=== PATIENT | female | born 1990 | race Caucasian/White ===

== ENCOUNTER 2017-02-07 12:49 | Emergency (ER) | payer OTHER ==
[~2017-02-07] VITALS: Ht 154.9 cm; Wt 45.4 kg
[2017-02-07] MEDS ORDERED: BUTA1CAP PO (13:03)
[2017-02-07] MEDS ORDERED: MELA2.5C2 PO (13:03)
[2017-02-07] MEDS ORDERED: NYQU1LIQ PO (13:03)
[2017-02-07] MEDS ORDERED: MAGN250T2 PO (13:03)
[2017-02-07] MEDS ORDERED: RIBO50CA PO (13:03)
[2017-02-07] MEDS ORDERED: NS 1,000 ML IV ONE (13:15)
[2017-02-07] MEDS ORDERED: METOCLOPRAMIDE INJ 10MG/2ML VIAL (J2765) IV ONE (13:15)
[2017-02-07] MEDS ORDERED: KETOROLAC 30 MG/ML VIAL (J1885) IV ONE (13:15)
[2017-02-07] MEDS ORDERED: ACETAMINOPHEN 325 MG TAB PO ONE (14:15)
[2017-02-07 15:03] VITALS: BP 100/61
== END 2017-02-07 15:47 | disposition home or self-care (01) ==
LOC: M ED 13:57
DX: G44.329 Chronic post-traumatic headache, not intractable (principal); Z88.1 Allergy status to other antibiotic agents; Z88.0 Allergy status to penicillin; Z79.899 Other long term (current) drug therapy
CPT/HCPCS: 96361; 96374; 96375; 99283; J1885; J2765

== ENCOUNTER → 2017-06-04 | Outpatient (REF) | payer OTHER ==
[~2017-06-04] MED LIST: BUTA1CAP PO; MAGN250T7 PO; MELA2.5C2 PO; NYQU1LIQ PO; RIBO50CA PO
== END ==
LOC: M LAB REF 19:26
PROVIDERS: ATTEND Physician Assistant
DX: N39.0 Urinary tract infection, site not specified (principal)

== ENCOUNTER → 2018-12-16 | Outpatient (REF) | payer BC, OTHER ==
[2018-12-16 21:47] LABS: APPEARANCE, URINE HAZY (CLEAR); BACTERIA, URINE AUTO 1+ (NEGATIVE); BILIRUBIN, URINE AUTO NEGATIVE (NEGATIVE); BLOOD, URINE BLOOD NEGATIVE (NEGATIVE); COLOR, URINE YELLOW (YELLOW); GLUCOSE, URINE (UA) AUTO NEGATIVE (NEGATIVE); KETONE, URINE AUTO NEGATIVE (NEGATIVE); LEUKOCYTE ESTERASE, URINE AUTO TRACE (NEGATIVE); MUCUS, URINE SMALL (NEGATIVE); NITRITE, URINE AUTO NEGATIVE (NEGATIVE); PROTEIN, URINE AUTO NEGATIVE (NEGATIVE); RBC, URINE AUTO 1 /HPF (0-3); SQUAMOUS EPITHELIAL CELL UR AU 9 /HPF (0-6); WBC, URINE AUTO 4 /HPF (0-3)
== END ==
LOC: M LAB REF 12:02
PROVIDERS: ATTEND Physician Assistant Medical
DX: N39.0 Urinary tract infection, site not specified (principal)

== ENCOUNTER 2018-12-20 16:03 | Emergency (ER) | payer OTHER, BC ==
[2018-12-20] MEDS ORDERED: ACETAMINOPHEN TAB 650MG DOSE (2X325MG) PO ONE (16:30)
[2018-12-20] MEDS ORDERED: ADACEL/BOOSTRIX VACCINE (DIPHTH/PERTUSS/ACELL/TETANUS)0.5ML SYR (90715) IM ONE (16:30)
[2018-12-20 18:03] VITALS: BP 111/69
== END 2018-12-20 18:20 | disposition home or self-care (01) ==
LOC: EDBD 16:03 → M ED 16:03
DX: S01.01XA Laceration without foreign body of scalp, initial encounter (principal); W19.XXXA Unspecified fall, initial encounter; Y92.89 Other specified places as the place of occurrence of the external cause

== ENCOUNTER → 2019-01-14 | Outpatient (REF) | payer BC ==
[2019-01-18 14:37] LABS: HPV HYBRID CAPTURE II Negative (Negative)
== END ==
LOC: M SFHCPLAZ 09:58
PROVIDERS: ATTEND Nurse Practitioner Family
DX: Z12.4 Encounter for screening for malignant neoplasm of cervix (principal)

== ENCOUNTER 2019-02-11 10:28 | Emergency (ER) | payer BC, OTHER ==
[~2019-02-11] VITALS: Ht 152.4 cm; Wt 48.7 kg
[2019-02-11] MEDS ORDERED: PHEN-501 PO (10:43)
[2019-02-11] MEDS ORDERED: QC A650T3 PO (10:43)
[2019-02-11] MEDS ORDERED: diphenhydrAMINE INJ 50MG/ML VIAL (J1200) IV STA (11:47)
[2019-02-11] MEDS ORDERED: METOCLOPRAMIDE INJ 10MG/2ML VIAL (J2765) IV ONE (12:00)
[2019-02-11] MEDS ORDERED: KETOROLAC 30 MG/ML VIAL (J1885) IV ONE (12:00)
[2019-02-11] MEDS ORDERED: NS 1,000 ML IV ONE (12:00)
--- NOTE | 2019-02-11 13:00 | REP ---
Head CT without contrast: History: There are headache. Comparison study: Comparison head CT study June 12, 2016. CT findings: Bone window settings demonstrate an intact bony calvarium. There is no evidence of skull fracture or incidental bony calvarial lesion. The visualized paranasal sinuses appear clear. No intraorbital abnormality is seen. On soft tissue window setting images; the lateral, third, and fourth ventricles are normal in size and position. Dean-white differentiation pattern is normal above and below the tentorium. There are is no evidence of intracranial hemorrhage. No mass, edema, infarction, or midline shift is seen. No extra-axial fluid collection is appreciated. Impression: Negative noncontrast head CT. Electronically Signed by David Sherman MD 02/11/2019 12:51 P
[2019-02-11 14:29] VITALS: BP 98/63
== END 2019-02-11 14:31 | disposition home or self-care (01) ==
LOC: M ED 10:28
DX: G43.909 Migraine, unspecified, not intractable, without status migrainosus (principal); Z79.899 Other long term (current) drug therapy; Z88.0 Allergy status to penicillin
CPT/HCPCS: 70450; 96374; 96375; 99284; J1200; J1885; J2765

== ENCOUNTER → 2019-02-17 | Outpatient (REF) | payer BC ==
[~2019-02-17] MED LIST changes: +PHEN-501 PO; +QC A650T3 PO
[2019-02-17 11:58] LABS: BASO % 0.3 % (0.0-1.0); EOS # 0.2 10^3/uL (0.0-0.50); EOS % 2.3 % (0.0-3.0); HEMATOCRIT 39.5 % (36.0-47.0); HEMOGLOBIN 12.5 g/dl (12.0-15.5); LYMPH # 1.3 10^3/uL (1.5-6.5); LYMPH % 19.4 % (24.0-44.0); MEAN CORPUSCULAR HEMOGLOBIN 28.3 pg (27.0-33.0); MEAN CORPUSCULAR HGB CONC 31.6 g/dl (32.0-36.5); MEAN CORPUSCULAR VOLUME 89.4 fl (80.0-96.0); MONO # 0.6 10^3/uL (0.0-0.8); MONO % 8.6 % (0.0-5.0); NEUTROPHILS # 4.8 10^3/uL (1.8-7.7); NEUTROPHILS % 69.3 % (36.0-66.0); PLATELET COUNT, AUTOMATED 296 10^3/uL (150-450); RED BLOOD COUNT 4.42 10^6/uL (4.00-5.40); WHITE BLOOD COUNT 6.9 10^3/uL (4.0-10.0)
[2019-02-17 12:10] LABS: ALBUMIN 4.1 GM/DL (3.2-5.2); ALT/SGPT 19 U/L (12-78); BILIRUBIN,TOTAL 0.3 MG/DL (0.2-1.0); BLOOD UREA NITROGEN 13 MG/DL (7-18); CALCIUM LEVEL 8.6 MG/DL (8.5-10.1); CARBON DIOXIDE LEVEL 28 MEQ/L (21-32); CHLORIDE LEVEL 108 MEQ/L (98-107); CHOLESTEROL LEVEL 182 MG/DL (<200); CREATININE FOR GFR 0.57 MG/DL (0.55-1.30); FREE T4 0.83 NG/DL (0.76-1.46); GLOMERULAR FILTRATION RATE > 60.0 (>60); GLUCOSE, FASTING 90 MG/DL (70-100); HDL CHOLESTEROL 54 MG/DL (>40); LDL CHOLESTEROL 111 MG/DL (<100); NON-HDL-C 128 MG/DL; POTASSIUM SERUM 4.1 MEQ/L (3.5-5.1); SODIUM LEVEL 141 MEQ/L (136-145); THYROID STIMULATING HORMONE 0.999 uIU/ML (0.358-3.740); TOTAL PROTEIN 6.9 GM/DL (6.4-8.2); TRIGLYCERIDES LEVEL 83 MG/DL (<150)
[2019-02-17 12:15] LABS: TOTAL 25(OH) VITAMIN D 14.1 NG/ML (30.0-100.0)
== END ==
LOC: M SFHCPLAZ 09:14
PROVIDERS: ATTEND Nurse Practitioner Family
DX: Z13.228 Encounter for screening for other metabolic disorders (principal); G43.909 Migraine, unspecified, not intractable, without status migrainosus; E55.9 Vitamin D deficiency, unspecified

== ENCOUNTER 2019-05-27 14:49 | Emergency (ER) | payer OTHER, BC ==
[~2019-05-27] VITALS: Ht 152.4 cm; Wt 46.4 kg
[2019-05-27 14:50] VITALS: BP 128/80
[2019-05-27] MEDS ORDERED: PROP10TA56 (15:01)
[2019-05-27] MEDS ORDERED: D3-5CAP (15:01)
[2019-05-27] MEDS ORDERED: ONDANSETRON 4 MG ORAL DISINTEGRATING TAB (Q0162 PER 1MG) PO ONE (16:30)
[2019-05-27] MEDS ORDERED: KETOROLAC TROMETHAMINE 10 MG TAB PO ONE (16:30)
--- NOTE | 2019-05-27 17:18 | REP ---
CT BRAIN WITHOUT CONTRAST: CT brain performed without IV contrast. COMPARISON: Prior study 03/13/2019. The ventricles are normal in size and position with no midline shift or mass effect. Dean/white differentiation is well-maintained. There is no acute intracranial hemorrhage or extra-axial fluid collection. There is no evidence of a skull fracture. IMPRESSION: Negative noncontrast CT brain. Electronically Signed by Leno Dean MD 05/28/2019 10:09 A
== END 2019-05-27 18:16 | disposition home or self-care (01) ==
LOC: M ED 14:49
DX: S00.03XA Contusion of scalp, initial encounter (principal); Y04.8XXA Assault by other bodily force, initial encounter; Y92.198 Other place in other specified residential institution as the place of occurrence of the external cause; Y99.0 Civilian activity done for income or pay; R51 Headache; Z88.0 Allergy status to penicillin; Z88.1 Allergy status to other antibiotic agents; Z79.899 Other long term (current) drug therapy
CPT/HCPCS: 70450; 99283; Q0162

== ENCOUNTER → 2019-10-15 | Outpatient (REF) | payer OTHER, BC ==
[~2019-10-15] MED LIST changes: +D3-5CAP; +PROP10TA56
[2019-10-15 19:36] LABS: BASO % 0.2 % (0.0-1.0); EOS # 0.1 10^3/uL (0.0-0.5); EOS % 1.3 % (0.0-3.0); HEMATOCRIT 39.2 % (36.0-47.0); HEMOGLOBIN 12.7 g/dl (12.0-15.5); LYMPH # 4.3 10^3/uL (1.5-5.0); LYMPH % 45.3 % (24.0-44.0); MEAN CORPUSCULAR HEMOGLOBIN 29.2 pg (27.0-33.0); MEAN CORPUSCULAR HGB CONC 32.4 g/dl (32.0-36.5); MEAN CORPUSCULAR VOLUME 90.1 fl (80.0-96.0); MONO # 0.8 10^3/uL (0.0-0.8); MONO % 8.4 % (0.0-5.0); NEUTROPHILS # 4.2 10^3/uL (1.5-8.5); NEUTROPHILS % 44.6 % (36.0-66.0); PLATELET COUNT, AUTOMATED 386 10^3/uL (150-450); RED BLOOD COUNT 4.35 10^6/uL (4.00-5.40); WHITE BLOOD COUNT 9.5 10^3/uL (4.0-10.0)
[2019-10-15 19:57] LABS: ERYTHROCYTE SEDIMENTATION RATE 4 mm/hr (0-20)
== END ==
LOC: M LABDRWAD 19:13
PROVIDERS: ATTEND Physician Assistant
DX: J01.90 Acute sinusitis, unspecified (principal)

== ENCOUNTER → 2021-02-28 | Outpatient (CLI) | payer BC ==
--- NOTE | 2021-02-28 17:43 | REP ---
INDICATION: PELVIC PAIN. COMPARISON: None. TECHNIQUE: Transabdominal and transvaginal scanning performed. FINDINGS: Uterine dimensions are 8.7 x 4.2 x 5.4 cm. Endometrial echo is 11 mm in AP dimension and centrally placed. The bladder measures 7.0 x 5.1 x 11.1cm. The right ovary has dimensions of 4.0 x 3.0 x 3.5 cm. It's Doppler flow is normal with a resistive index of 0.55. The left ovary dimensions are 2.7 x 2.6 x 2.4 cm. It's Doppler flow was normal with resistive index of 0.49. Small complex cyst right ovary measures 2.9 x 2.7 x 3.1 cm. No free fluid is seen in the cul-de-sac. IMPRESSION: Small complex cyst right ovary measures 2.9 x 2.7 x 3.1 cm. <Electronically signed by Leno Dean > 02/28/21 [id number]
== END ==
LOC: M RAD 16:06
PROVIDERS: ATTEND Nurse Practitioner Family
DX: R10.2 Pelvic and perineal pain (principal)

== ENCOUNTER → 2021-03-14 | Outpatient (REF) | payer BC ==
[2021-03-14 12:46] LABS: BASO % 0.1 % (0.0-1.0); EOS % 0.4 % (0.0-3.0); HEMATOCRIT 40.7 % (36.0-47.0); LYMPH # 1.9 10^3/uL (1.5-5.0); LYMPH % 22.9 % (24.0-44.0); MEAN CORPUSCULAR HEMOGLOBIN 28.6 pg (27.0-33.0); MEAN CORPUSCULAR HGB CONC 31.9 g/dl (32.0-36.5); MEAN CORPUSCULAR VOLUME 89.6 fl (80.0-96.0); MONO # 0.7 10^3/uL (0.0-0.8); MONO % 8.8 % (2.0-8.0); NEUTROPHILS # 5.5 10^3/uL (1.5-8.5); NEUTROPHILS % 67.6 % (36.0-66.0); PLATELET COUNT, AUTOMATED 304 10^3/uL (150-450); RED BLOOD COUNT 4.54 10^6/uL (4.00-5.40); WHITE BLOOD COUNT 8.1 10^3/uL (4.0-10.0)
[2021-03-14 13:12] LABS: BLOOD UREA NITROGEN 10 MG/DL (7-18); CALCIUM LEVEL 9.3 MG/DL (8.5-10.1); CARBON DIOXIDE LEVEL 30 MEQ/L (21-32); CHLORIDE LEVEL 106 MEQ/L (98-107); CREATININE FOR GFR 0.57 MG/DL (0.55-1.30); GLOMERULAR FILTRATION RATE > 60.0 (>60); GLUCOSE, FASTING 83 MG/DL (70-100); POTASSIUM SERUM 3.8 MEQ/L (3.5-5.1); SODIUM LEVEL 140 MEQ/L (136-145)
[2021-03-14 13:22] LABS: TOTAL 25(OH) VITAMIN D 36.7 NG/ML (30.0-100.0)
== END ==
LOC: M SFHCPLAZ 09:12 → M SFHCADAM 09:59
PROVIDERS: ATTEND Nurse Practitioner Family
DX: E55.9 Vitamin D deficiency, unspecified (principal); R10.2 Pelvic and perineal pain

== ENCOUNTER → 2021-08-25 | Outpatient (CLI) | payer BC ==
--- NOTE | 2021-08-26 03:41 | REP ---
INDICATION: PELVIC PAIN COMPARISON: None. TECHNIQUE: Transabdominal pelvic ultrasound followed by transvaginal examination for better evaluation of the endometrium and adnexa with color Doppler evaluation of the ovaries. FINDINGS: Bladder is unremarkable and measures 5.5 x 4.9 x 9.7 cm. Normal anteverted uterus measures 8.7 x 3.7 x 4.8 cm. The endometrial complex measures 6.9 mm thickness. No discrete uterine or endometrial abnormalities are appreciated. Bilateral ovaries are normal in appearance and vascularity without evidence for torsion. Right ovary measures 3.0 x 2.2 x 2.3 cm; R I = 0.55. Left ovary measures 2.9 x 1.5 x 3.2 cm; R I = 0.46. No pelvic fluid or adnexal mass lesion. IMPRESSION: Normal pelvic ultrasound. <Electronically signed by Richard King > 08/26/21 [id number]
== END ==
LOC: M WHC 14:59
PROVIDERS: ATTEND Obstetrics & Gynecology
DX: R10.2 Pelvic and perineal pain (principal)

== ENCOUNTER → 2022-03-05 | Outpatient (REF) | payer BC ==
[2022-03-05 16:46] LABS: RSV AMPLIFICATION NEGATIVE (NEGATIVE)
== END ==
LOC: M LAB REF 15:32
PROVIDERS: ATTEND Physician Assistant Medical
DX: J02.9 Acute pharyngitis, unspecified (principal)

== ENCOUNTER 2023-04-27 08:33 | Emergency (ER) | payer BC ==
[~2023-04-27] VITALS: Ht 152.4 cm; Wt 48.4 kg
[~2023-04-27 08:33] MED LIST changes: -MELA2.5C2 PO; +MELA2.5T11 PO
[2023-04-27] MEDS ORDERED: NORT50CA PO (08:49)
[2023-04-27] MEDS ORDERED: FAMO20TA PO (08:49)
[2023-04-27] MEDS ORDERED: diazePAM 5MG TABLET PO ONE ×2 (10:50→12:50)
[2023-04-27] MEDS ORDERED: KETOROLAC 30 MG/ML 1ML VIAL IV ONE (10:50)
[2023-04-27] MEDS ORDERED: LIDOCAINE 5% (LIDODERM) PATCH TD ONE (10:50)
[2023-04-27 11:32] LABS: BASO % 0.1 % (0.0-1.0); EOS % 0.1 % (0.0-3.0); HEMATOCRIT 38.9 % (36.0-47.0); HEMOGLOBIN 12.7 g/dl (12.0-15.5); LYMPH % 12.2 % (24.0-44.0); MEAN CORPUSCULAR HEMOGLOBIN 28.7 pg (27.0-33.0); MEAN CORPUSCULAR HGB CONC 32.6 g/dl (32.0-36.5); MEAN CORPUSCULAR VOLUME 87.8 fl (80.0-96.0); MONO # 0.3 10^3/uL (0.0-0.8); MONO % 4.1 % (2.0-8.0); NEUTROPHILS % 83.3 % (36.0-66.0); PLATELET COUNT, AUTOMATED 287 10^3/uL (150-450); RED BLOOD COUNT 4.43 10^6/uL (4.00-5.40); WHITE BLOOD COUNT 8.4 10^3/uL (4.0-10.0)
[2023-04-27 11:44] LABS: ERYTHROCYTE SEDIMENTATION RATE 10 mm/hr (0-20)
[2023-04-27] MEDS ORDERED: NAPR-837 PO (14:16)
[2023-04-27] MEDS ORDERED: METH-1165 PO (14:16)
[2023-04-27] MEDS ORDERED: ASPE4PAD TOP (14:16)
[2023-04-27 14:32] VITALS: BP 110/63; TEMP 98.7; O2SAT 100
== END 2023-04-27 14:36 | disposition home or self-care (01) ==
LOC: M ED 08:33
DX: M54.2 Cervicalgia (principal); Z88.0 Allergy status to penicillin; Z88.1 Allergy status to other antibiotic agents; Z79.899 Other long term (current) drug therapy
CPT/HCPCS: 72125; 80047; 84702; 85025; 85652; 86140; 96374; 99284; J1885

== ENCOUNTER → 2023-05-15 | Outpatient (CLI) | payer BC ==
[~2023-05-15] MED LIST changes: +ASPE4PAD TOP; +FAMO20TA PO; +METH-1165 PO; +NAPR-837 PO; +NORT50CA PO
== END ==
LOC: M ADAMS 10:40
PROVIDERS: ATTEND Nurse Practitioner Adult Health
DX: M54.2 Cervicalgia (principal)

== ENCOUNTER → 2023-12-30 | Outpatient (REF) | payer OTHER, BC | LOC: M LAB REF 18:01 | PROVIDERS: ATTEND Physician Assistant Medical | DX: M79.10 Myalgia, unspecified site (principal); B34.1 Enterovirus infection, unspecified ==

== ENCOUNTER → 2024-12-08 | Outpatient (CLI) | payer OTHER ==
[2024-12-08 17:32] LABS: BASO % 0.6 % (0.0-1.0); EOS # 0.2 10^3/uL (0.0-0.5); EOS % 3.8 % (0.0-3.0); HEMATOCRIT 35.7 % (36.0-47.0); HEMOGLOBIN 11.3 g/dl (12.0-15.5); LYMPH # 1.5 10^3/uL (1.5-5.0); LYMPH % 23.4 % (24.0-44.0); MEAN CORPUSCULAR HEMOGLOBIN 26.7 pg (27.0-33.0); MEAN CORPUSCULAR HGB CONC 31.7 g/dl (32.0-36.5); MEAN CORPUSCULAR VOLUME 84.4 fl (80.0-96.0); MONO # 0.6 10^3/uL (0.0-0.8); MONO % 9.3 % (2.0-8.0); NEUTROPHILS % 62.6 % (36.0-66.0); PLATELET COUNT, AUTOMATED 387 10^3/uL (150-450); RED BLOOD COUNT 4.23 10^6/uL (4.00-5.40); WHITE BLOOD COUNT 6.3 10^3/uL (4.0-10.0)
[2024-12-08 18:05] LABS: ALBUMIN 3.8 G/DL (3.2-5.2); ALKALINE PHOSPHATASE 62 U/L (35-104); ALT/SGPT 24 U/L (7.0-40); AST/SGOT 19 U/L (<34); BILIRUBIN,TOTAL 0.3 MG/DL (0.3-1.2); BLOOD UREA NITROGEN 12 MG/DL (9-23); CALCIUM LEVEL 9.2 MG/DL (8.5-10.1); CARBON DIOXIDE LEVEL 30 MMOL/L (20-31); CHLORIDE LEVEL 106 MMOL/L (98-107); CHOLESTEROL LEVEL 194 MG/DL (<200); CHOLESTEROL RISK RATIO 3.78 (<5); CREATININE FOR GFR 0.69 MG/DL (0.55-1.30); GLOMERULAR FILTRATION RATE > 60.0 (>60); GLUCOSE, FASTING 103 MG/DL (60-100); HDL CHOLESTEROL 51.2 MG/DL (>40); LDL CHOLESTEROL 127.2 MG/DL (<100); NON-HDL-C 142.8 MG/DL; POTASSIUM SERUM 4.2 MMOL/L (3.5-5.1); SODIUM LEVEL 141 MMOL/L (136-145); TOTAL PROTEIN 7.1 G/DL (5.7-8.2); TRIGLYCERIDES LEVEL 78 MG/DL (<150)
[2024-12-08 18:06] LABS: THYROID STIMULATING HORMONE 0.484 uIU/ML (0.55-4.78)
[2024-12-08 18:07] LABS: FREE T4 0.99 NG/DL (0.89-1.76)
== END ==
LOC: M PLALAB 16:26
PROVIDERS: ATTEND Nurse Practitioner Family
DX: Z00.00 Encounter for general adult medical examination without abnormal findings (principal)

== ENCOUNTER → 2025-07-30 | Outpatient (REF) | payer OTHER | LOC: M LAB REF 12:32 | PROVIDERS: ATTEND Physician Assistant | DX: J02.9 Acute pharyngitis, unspecified (principal) ==

== ENCOUNTER → 2025-10-12 | Outpatient (REF) | payer OTHER ==
[2025-10-15 13:52] LABS: HPV APTIMA Not Detected (Not Detected)
== END ==
LOC: M SFHCWAGY 13:10
PROVIDERS: ATTEND Nurse Practitioner Family
DX: Z12.4 Encounter for screening for malignant neoplasm of cervix (principal)
CPT/HCPCS: 87624; G0123